=== PATIENT | male | born 1985 | race Caucasian/White ===

== ENCOUNTER 2021-08-10 12:39 | Outpatient (REF) | payer OTHER, SELFPAY ==
[2021-08-10 13:09] LABS: MANUAL DIFF FLAG NO
[2021-08-10 14:01] LABS: Basophils Percent Auto 0.5 % (0-2); Eosinophils Absolute Auto 0.1 X10*3/uL (0.0-0.4); Eosinophils Percent Auto 1.9 % (0-4); Hemoglobin 15.2 g/dl (14.0-18.0); Imm Gran Abs Auto 0.03 X10*3/uL (0.00-0.03); Imm Gran Pct Auto 0.4 % (0.0-0.4); Lymphocytes Absolute Auto 2.3 X10*3/uL (1.2-4.9); Lymphocytes Percent Auto 30.9 % (20-40); Mean Corpuscular Hemoglobin 29.7 pg (27.0-33.0); Mean Platelet Volume 10.5 fL (9.4-12.4); Monocytes Absolute Auto 0.5 X10*3/uL (0.1-1.2); Monocytes Percent Auto 6.8 % (2-11); Neutrophils Absolute Auto 4.4 x10*3/uL (2.0-8.3); Neutrophils Percent Auto 59.5 % (45-73); Platelet Count 348 X10*3/uL (160-400); Red Blood Count 5.11 X10*6/uL (4.60-5.80); Red Cell Distribution Width 11.6 % (11.0-16.0); White Blood Count 7.5 X10*3/uL (4.8-10.8)
[2021-08-10 14:57] LABS: Alanine Aminotransferase 21 U/L (0-40); Albumin Level 4.3 g/dL (3.5-5.0); Alkaline Phosphatase 51 U/L (39-117); Anion Gap 11 (12-20); Aspartate Amino Transferase 19 U/L (5-37); Bilirubin Total 0.5 mg/dL (0.0-1.0); Carbon Dioxide 28 mmol/L (22-29); Chloride 106 mmol/L (96-108); Cholesterol 205 mg/dL; Estimated Glomerular Filt Rate > 60; Glucose Fasting 111 mg/dL (60-99); HDL Cholesterol 40 mg/dL; LDL Cholesterol Calculated 136 mg/dl; Potassium 4.8 mmol/L (3.3-5.1); Sodium 140 mmol/L (135-145); Triglycerides 149 mg/dL
[2021-08-10 15:39] LABS: Estimated Average Glucose 123 mg/dL; Hemoglobin A1c % 5.9 %
[2021-08-10 15:48] LABS: Blood Urea Nitrogen 15 mg/dL (9-16); Calcium 10.2 mg/dL (8.4-10.2)
[2021-08-11 03:39] LABS: CT PCR NOT DETECTED (Not Detect.); NG PCR NOT DETECTED (Not Detect.)
[2021-08-11 09:51] LABS: HIV AB/AG Nonreactive (Nonreactive); HIV Num 1 0.04 S/CO (0.00-0.99)
[2021-08-12 08:35] LABS: Syphilis Screen Nonreactive (Nonreactive)
== END 2021-08-10 12:40 | disposition home or self-care (01) ==
LOC: HO.LAB 12:39
PROVIDERS: Visit Provider Nurse Practitioner Family
DX: Z11.4 Encounter for screening for human immunodeficiency virus [HIV] (principal); Z11.3 Encounter for screening for infections with a predominantly sexual mode of transmission; E78.00 Pure hypercholesterolemia, unspecified; E11.9 Type 2 diabetes mellitus without complications; I10 Essential (primary) hypertension
CPT/HCPCS: 80053; 80061; 83036; 85025; 86780; 87389; 87491; 87591

== ENCOUNTER 2021-12-01 12:06 | Outpatient (REF) | payer OTHER, SELFPAY ==
--- NOTE | ~2021-12-01 | XR_ITS ---
EXAMINATION: X-RAY RIGHT FOOT X-RAY LEFT FOOT CLINICAL INFORMATION: Pain. COMPARISON: None. TECHNIQUE: 3 views of each foot were obtained. FINDINGS: Right foot: No acute fracture or malalignment. No significant degenerative osteoarthritis. No erosions. Nonspecific diffuse soft tissue swelling. Left foot: No acute fracture or malalignment. Mild degenerative osteoarthritis of tarsometatarsal joints. No erosions. Nonspecific diffuse soft tissue swelling. XR/XR foot RT min 3V IMPRESSION: No acute fractures or malalignment. 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 Nonspecific bilateral soft tissue swelling.
--- NOTE | ~2021-12-01 | XR_ITS ---
EXAMINATION: X-RAY RIGHT FOOT X-RAY LEFT FOOT CLINICAL INFORMATION: Pain. COMPARISON: None. TECHNIQUE: 3 views of each foot were obtained. FINDINGS: Right foot: No acute fracture or malalignment. No significant degenerative osteoarthritis. No erosions. Nonspecific diffuse soft tissue swelling. Left foot: No acute fracture or malalignment. Mild degenerative osteoarthritis of tarsometatarsal joints. No erosions. Nonspecific diffuse soft tissue swelling. XR/XR foot LT min 3V IMPRESSION: No acute fractures or malalignment. 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 Nonspecific bilateral soft tissue swelling.
== END 2021-12-01 12:07 | disposition home or self-care (01) ==
LOC: HO.XRAY 12:06
PROVIDERS: PCP Nurse Practitioner Family; Visit Provider Nurse Practitioner Family
DX: M79.671 Pain in right foot (principal); M79.672 Pain in left foot
CPT/HCPCS: 73630

== ENCOUNTER 2022-10-03 12:04 | Outpatient (REF) | payer OTHER, SELFPAY ==
[2022-10-03 13:15] LABS: Hematocrit 49.2 % (42.0-52.0); Hemoglobin 16.2 g/dl (14.0-18.0); Mean Corpuscular HGB Conc 32.9 g/dl (31.0-36.0); Mean Corpuscular Hemoglobin 29.8 pg (27.0-33.0); Mean Corpuscular Volume 90.4 fL (80.0-98.0); Mean Platelet Volume 10.3 fL (9.4-12.4); Platelet Count 276 X10*3/uL (160-400); Red Blood Count 5.44 X10*6/uL (4.60-5.80); Red Cell Distribution Width 11.9 % (11.0-16.0); White Blood Count 6.2 X10*3/uL (4.8-10.8)
[2022-10-03 13:53] LABS: Alanine Aminotransferase 20 U/L (0-40); Albumin Level 4.3 g/dL (3.5-5.0); Alkaline Phosphatase 56 U/L (39-117); Anion Gap 14 (12-20); Aspartate Amino Transferase 19 U/L (5-37); Bilirubin Total 0.9 mg/dL (0.0-1.0); Blood Urea Nitrogen 18 mg/dL (9-16); Calcium 9.8 mg/dL (8.4-10.2); Carbon Dioxide 27 mmol/L (22-29); Chloride 104 mmol/L (96-108); Cholesterol 214 mg/dL; Estimated Glomerular Filt Rate 54; Glucose Fasting 103 mg/dL (60-99); HDL Cholesterol 47 mg/dL; LDL Cholesterol Calculated 144 mg/dl; Potassium 4.7 mmol/L (3.3-5.1); Sodium 140 mmol/L (135-145); Total Protein 7.4 g/dL (6.5-8.0); Triglycerides 117 mg/dL
[2022-10-03 14:00] LABS: TSH reflex Free T4 0.84 uIU/mL (0.32-4.0)
== END 2022-10-03 12:05 | disposition home or self-care (01) ==
LOC: HO.LAB 12:04
PROVIDERS: PCP Physician Assistant; Visit Provider Physician Assistant
DX: E66.09 Other obesity due to excess calories (principal); E78.9 Disorder of lipoprotein metabolism, unspecified; Z68.36 Body mass index [BMI] 36.0-36.9, adult
CPT/HCPCS: 36415; 80053; 80061; 84443; 85027

== ENCOUNTER 2023-08-01 13:15 | Outpatient (AMB) | payer OTHER, SELFPAY ==
--- NOTE | 2023-08-01 13:28 | A.OFFPC_ITS ---
Vital Signs 08/01/23 13:29 Height 5 ft 9 in Weight 247 lb 4 oz BMI 36.5 BP 128/96 H Blood Pressure Location Lt brachial Position Sitting Pulse 65 Pulse Source Pulse Oximeter Pulse Oximetry (%) 97 Oxygen Delivery Method Room Air Intake Visit Reasons: PE Intake Note: Patient is here today for a physical. Microbiology Manager Required: No Accompanied by: Self / Same As Patient Allergies No Known Drug Allergies Allergy (Unknown, Verified 08/01/23 13:38) Unknown Medication List - Last Reconciled 08/01/23 by Milton Bird PA-C No Known Home Meds Tobacco use date assessed: 08/01/23 Dental Screening Dental Screen Date: 08/01/23 Did you have a dental visit in the last 12 months?: No Did you have a dental problem in the last 6 months where you did not have access to dental care?: No Was dental information given to patient?: Yes HPI PE HPI Details Patient is a 38-year-old male here today for a follow-up visit. Vaccines:? Up-to-date with COVID vaccine, up-to-date with flu , up-to-date with tetanus vaccine . .? Obesity: Unfortunately gained weight since last office visit.. Has been more physically active and training for a 5K. ? Patient does understand his BMI is well over 30 has been working on being more physically active to reduce his weight. .. Elevated blood pressure reading:? Blood pressure reading today in office accepta ble. Has lost weight since last office visit .. Borderline high cholesterol: Most recent lipid panel showing borderline high total cholesterol. Laboratory Tests 08/10/21 08/10/21 10/03/22 13:07 13:07 12:10 Creatinine 1.31 1.46 H Fasting Glucose 111 H Cholesterol 205 LDL Cholesterol, C alc 136 10/03/22 12:10 Creatinine Fasting Glucose Cholesterol 214 LDL Cholesterol, C alc ON LICENSE OF [facility] Medical History (Updated 10/04/22 @ 13:12 by Milton Bird PA-C) Obese Surgical History H/O hand surgery Family History Mother No problems noted. Father No problems noted. 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 1. Little interest or pleasure in doing things: not at all 2. Feeling down, depressed, or hopeless: not at all 3. Trouble falling or staying asleep, or sleeping too much: not at all 4. Feeling tired or having little energy: not at all 5. Poor appetite or overeating: not at all 6. Feeling bad about yourself - or that you are a failure or have let yourself or your family down: not at all 7. Trouble concentrating on things, such as reading the newspaper or watching television: not at all 8. Moving or speaking so slowly that other people could have noticed. Or the opposite - being so fidgety or restless that you have been moving around a lot more than usual: not at all 9. Thoughts that you would be better off or of hurting yourself in some way : not at all Total score: 0 Depression Screening Interpretation: Negative Depression Screening Done: Yes 02005 - PHQ-9 Billing: Yes Source: Developed by Drs. Kev Winter, Lacey Weaver, Joni Meyers and colleagues, with an educational pastor from [employer]. Thrive Questionnaire Date Thrive assessed: 08/01/23 I am a: Patient What is your living situation today?: I have a steady place to live Within the past 12 months, did the food you bought not last and you didn't have the money to get more?: Never true Within the past 12 months, did you worry whether your food would run out before you got money to buy more?: Never true Do you have trouble paying for medicines?: No Do you have trouble getting transportation to medical appointments?: No Do you have trouble paying your heating and electricity bill?: No Do you have trouble taking care of your child, family member or friend?: No Do you have trouble with day-to-day activities such as bathing, preparing meals, shopping, managing finances, etc.?: No Are you currently unemployed and looking for a job?: No Are you interested in more education?: No Please select the resources that you would like help with: None Currently or been in a relationship where the following occur: no concerns reported THRIVE Score: 0 AUDIT C Alcohol Use Questionnaire (AUDIT-C) 1. How often do you have a drink containing alcohol?: 2-4 times a month 2. How many drinks containing alcohol do you have on a typical day when you are drinking?: 3 or 4 3. How often do you have six or more drinks on one occasion?: Never Total Score: 3 RAMIN-7 AMB Questionnaire RAMIN-7 Date RAMIN - 7 assessed: 08/01/23 Feeling nervous, anxious, or on edge: 0 = Not at all Not being able to stop or control worryin = Not at all Worrying too much about different things: 0 = Not at all Trouble relaxin = Not at all Being so restless that it is hard to sit still: 0 = Not at all Becoming easily annoyed or irritable: 0 = Not at all Feeling afraid as if something awful might happen: 0 = Not at all Total RAMIN-7 score (0-4 normal; 5-9 mild; 10-14 moderate; 15-21 severe): 0 Source: Developed by Drs. Kev Winter, Lacey Weaver, Joni Meyers and colleagues, with an educational pastor from [employer]. RAMIN-7 Assessment Billing RAMIN-7 Assessment Tool: RAMIN-7 Assessment 72225 Review of Systems Const Denies body aches, Denies chills, Denies excessive sweating, Denies fatigue, Denies fever(s) and Denies headache(s) Eyes Denies blurry vision ENT Denies dysphagia, Denies vertigo, Denies dizziness, Denies headache(s), Denies hearing loss and Denies tinnitus Card Denies chest pain, Denies chest pain with activity, Denies syncope, Denies irregular heart rhythm and Denies dyspnea Resp Denies chest congestion, Denies cough, Denies hemoptysis, Denies dyspnea and Denies wheezing GI Denies abdominal pain, Denies melena, Denies hematochezia, Denies coffee ground emesis, Denies dysphagia, Denies diarrhea, Denies nausea and Denies vomiting Denies difficulty urinating, Denies dysuria, Denies urinary frequency, Denies urinary hesitancy and Denies urinary urgency Musc Denies arthralgias, Denies limited range of motion, Denies muscle cramps and Denies muscle weakness Skin/Breast Denies rash and Denies skin ulcer Neuro Denies Abnormal speech present, Denies confusion, Denies vertigo, Denies dizziness, Denies syncope, Denies headache(s), Denies memory loss and Denies seizure-like activity Psych Denies anxiety, Denies confusion, Denies depression, Denies memory loss, Denies panic attacks and Denies paranoia Endo Denies excessive sweating, Denies fatigue, Denies flushing, Denies polydipsia and Denies polyuria Aller/Immun Denies wheezing Physical exam (Primary Care) Vital Signs: Last Vital Signs Pulse 65 08/01/23 13:29 BP 128/96 H 08/01/23 13:29 Pulse Ox 97 08/01/23 13:29 Oxygen Delivery Method Room Air 08/01/23 13:29 BMI result Body Mass Index 36.5 BMI Assessment/Plan discussion: High Tobacco/Smoking Status: Tobacco use Status Tobacco use date assessed 08/01/23 08/01/23 13:34 Patient Tobacco Use Status Never used Tobacco 08/01/23 13:34 e-Cigarette/Vaping Use Currently Using 08/01/23 13:34 PHQ-9: PHQ-9 Score PHQ-9: Total score 0 08/01/23 13:34 Depression Screening Interpretation: Negative Thrive Assessment: Date of Thrive Assessment Date Thrive assessed 08/01/23 08/01/23 13:34 Currently or been in a relationship where the following occur: no concerns reported Const Other: OBESE General: cooperative, comfortable, no acute distress, alert and awake; No confusion Orientation/consciousness: oriented to person, oriented to place, patient oriented x3 and No confusion HENMT Head: Yes normocephalic Ears: external ears normal and TM's normal bilaterally Face and sinus: No sinus tenderness Mouth: Normal oral and palatal mucosa present and tongue normal Teeth and gingiva: dentition normal and gingiva normal Throat: Yes posterior oropharynx normal, Yes tonsils normal and Yes uvula midline Eyes Conjunctivae: conjunctivae normal Sclerae: sclerae normal Pupils: Equal, round and reactive pupils present EOM: EOMs intact bilaterally Direct Ophthalmoscopy: No no photophobia Neck Neck: Yes no lymphadenopathy, No tender and Yes no JVD Thyroid: Thyroid normal Carotids: no bruits Chest Chest palpation & inspection: no tenderness Resp Effort & Inspection: normal respiratory effort, no audible wheezes, not labored and no stridor Auscultation: no crackles, no rales, no rhonchi and no wheezes Cardio Jugular venous distension: no JVD Rate: regular rate, not bradycardic and not tachycardic Rhythm: regular rhythm Bruits: no carotid bruits Peripheral pulses: Peripheral pulses 2+ throughout GI Inspection: Yes normal to inspection, No abdominal wall ecchymosis and No visible herniation Palpation (GI): Soft to palpation, nontender, no guarding, not rigid and No hepatosplenomegaly present Auscultation: normoactive bowel sounds General: Yes no CVA tenderness Back/Spine/Pelvis Back: no CVA tenderness and No back tenderness Cervical Spine: cervical ROM normal Thoracic/Lumbar Spine: thoracic and lumbar spine normal to inspection, straight leg raise negative bilaterally, No thoraco-lumbar ROM limited and No lumbar spinal tenderness Skin Lesions: no lesions Rashes: no rashes Wounds: no wounds Neuro General: oriented to person, oriented to place, patient oriented x3, CN's II-XI intact bilaterally and No confusion Cranial nerves: Yes Equal, round and reactive pupils present and Yes Normal accommodation reflex present Cognition (Neuro): normal cognition Speech: No Abnormal speech present Gait exam (Neuro): Normal gait present Motor exam (neuro): 5/5 motor strength present throughout Extrem Right upper extremity: full ROM; no cyanosis Left upper extremity: full ROM; no cyanosis Right lower extremity: no edema Left lower extremity: no edema Psych Appearance: grossly normal Mental Status: mental status grossly normal Affect: normal affect Attitude: cooperative Thought process: Normal thought process present Office Procedures Flu Questionnaire Does the patient have a severe egg allergy?: No Does the patient have severe life threatening allergies?: No Does the patient have a fever or illness today?: No Has the patient ever had Guillain-[place] Syndrome?: No Has the patient ever had any past reaction to a flu shot?: No Immunizations flu vacc [id number] 6mos up(PF) 60 mcg(15 mcgx4)/0.5 mL IM syringe Performing Provider: Milton Bird PA-C [facility] Administered by: STEPHY Thorpe on 08/01/23 13:38 Dose Route Admin Location Dispensed Lot Number Expiration Date [employer] Mushroom 0.5 mL IM Left Deltoid 0.5 mL [id number] 12/30/23 06514-365-12 [employer] VIS Given Date VIS Provided VIS Publication Date 08/01/23 Single Vaccine 21 Eligibility Eligibility Date Funding Source Not VFC Eligible 08/01/23 Private Assessment and Plan Assessment & Plan (1) Annual physical exam: Code(s): Z00.00 - Encounter for general adult medical examination without abnormal findings (2) Borderline high cholesterol: Code(s): E78.9 - Disorder of lipoprotein metabolism, unspecified Plan: Most recent lipid panel showing borderline high total cholesterol. Patient has been working on lifestyle modifications and has lost his weight. Will recheck lipid panel to assure normal. Will continue on lifestyle modifications to reduce his cholesterol. (3) Obese: Code(s): E66.9 - Obesity, unspecified Qualifiers: Obesity type: due to excess calories Obesity classification: adult class 2 (BMI 35 - 39.9) Serious obesity comorbidity presence: without serious comorbidity Body mass index: BMI 36.0-36.9 Qualified Code(s): E66.09 - Other obesity due to excess calories; Z68.36 - Body mass index [BMI] 36.0-36.9, adult Plan: Patient does understand his BMI is over 30 and has been working diligently on being more physically active and adapting to better eating habits to reduce his weight. Has lost weight since last office visit. (4) Impaired glucose metabolism: Code(s): R73.09 - Other abnormal glucose Plan: Patient's most recent fasting blood sugar and A1c and prediabetic range. He again has been working on lifestyle modifications to reduce his weight and blood sugars. (5) Elevated blood pressure reading: Code(s): R03.0 - Elevated blood-pressure reading, without diagnosis of hypertension Plan: Noted slightly elevated blood pressure reading today in office. Will continue to monitor work on lifestyle modifications to reduce his weight. (6) Plaque psoriasis: Code(s): L40.0 - Psoriasis vulgaris Plan: Patient does seem to plaque psoriasis over his bilateral anterior shins. Will supply patient with hydrocortisone cream to use during flares. Otherwise a dvised on keeping area moisturized after showers and following a low inflammatory diet. Orders: Orders Influenza [id number] Immunization Today Z23 - Encounter for immunization Comprehensive [place]. Panel Fast Today R73.09 - Other abnormal glucose Lipid Panel Today E78.9 - Disorder of lipoprotein metabolism, unspecified Hemoglobin A1c Today R73.09 - Other abnormal glucose Medications: New hydrocortisone valerate 0.2% 1 appl topical BID 30 days 45 grams 0RF L40.0 - Psoriasis vulgaris Coding Level of Care Code Est Pt Prev Care 18-39y(57719) Diagnoses Annual physical exam Z00.00 Borderline high cholesterol E78.9 Class 2 obesity due to excess calories without serious comorbidity with body mass index (BMI) of 36.0 to 36.9 in adult E66.09; Z68.36 Obesity type: due to excess calories Obesity classification: adult class 2 (BMI 35 - 39.9) Serious obesity comorbidity presence: without serious comorbidity Body mass index: BMI 36.0-36.9 Impaired glucose metabolism R73.09 Elevated blood pressure reading R03.0 Plaque psoriasis L40.0 Additional Codes RAMIN-7 Assessment Billing - RAMIN-7 Assessment Tool: RAMIN-7 Assessment [id number] ([id number])
[2023-08-01 13:29] VITALS: BP 128/96; PULSE 65; O2SAT 97; BMI 36.5
== END 2023-08-01 14:00 | disposition home or self-care (01) ==
PROVIDERS: PCP Physician Assistant; Visit Provider Physician Assistant
DX: Z23 Encounter for immunization (principal); Z00.00 Encounter for general adult medical examination without abnormal findings; E78.9 Disorder of lipoprotein metabolism, unspecified; E66.09 Other obesity due to excess calories; Z68.36 Body mass index [BMI] 36.0-36.9, adult; R73.09 Other abnormal glucose; R03.0 Elevated blood-pressure reading, without diagnosis of hypertension; L40.0 Psoriasis vulgaris
CPT/HCPCS: 90471; 90686; 99395

== ENCOUNTER 2023-08-15 08:45 | Outpatient (REF) | payer OTHER, SELFPAY ==
[2023-08-15 10:02] LABS: Estimated Average Glucose 108 mg/dL; Hemoglobin A1c % 5.4 % (<6.0)
[2023-08-15 10:30] LABS: Alanine Aminotransferase 41 U/L (0-40); Albumin Level 4.2 g/dL (3.5-5.0); Alkaline Phosphatase 51 U/L (39-117); Anion Gap 10 (12-20); Aspartate Amino Transferase 30 U/L (5-37); Bilirubin Total 0.8 mg/dL (0.0-1.0); Blood Urea Nitrogen 20 mg/dL (9-16); Calcium 9.4 mg/dL (8.4-10.2); Carbon Dioxide 26 mmol/L (22-29); Chloride 108 mmol/L (96-108); Cholesterol 223 mg/dL (<200); Estimated Glomerular Filt Rate 53; Glucose Fasting 110 mg/dL (60-99); Glucose Random 109 mg/dL (60-115); HDL Cholesterol 43 mg/dL (>40); LDL Cholesterol Calculated 143 mg/dL (<100); Potassium 4.1 mmol/L (3.3-5.1); Sodium 140 mmol/L (135-145); Total Protein 7.8 g/dL (6.5-8.0); Triglycerides 188 mg/dL (<150)
== END 2023-08-15 08:46 | disposition home or self-care (01) ==
LOC: HO.LAB 08:45
PROVIDERS: PCP Physician Assistant; Visit Provider Physician Assistant
DX: R73.09 Other abnormal glucose (principal); N28.9 Disorder of kidney and ureter, unspecified; E78.9 Disorder of lipoprotein metabolism, unspecified
CPT/HCPCS: 36415; 80048; 80053; 80061; 83036

== ENCOUNTER 2024-04-14 08:22 | Outpatient (AMB) | payer OTHER, SELFPAY ==
--- NOTE | 2024-04-14 08:35 | MHC.PC.OV ---
Vital Signs 04/14/24 08:37 Height 5 ft 9 in Weight 246 lb 8 oz BMI 36.4 BP 130/72 Blood Pressure Location Lt brachial Position Sitting Pulse 57 Pulse Source Pulse Oximeter Pulse Oximetry (%) 99 Oxygen Delivery Method Room Air Intake Visit Reasons: 6m f/u Intake Note: Patient is here to follow up on IGF, Obesity, Elevated blood pressure, Borderline high Cholesterol. Occupational Medicine Physician Required: No Production Underwriter: Not Required per policy Accompanied by: Self / Same As Patient Allergies No Known Drug Allergies Allergy (Unknown, Verified 04/14/24 08:45) Unknown Medication List - Last Reconciled 04/14/24 by Milton Bird PA-C hydrocortisone valerate 0.2% 1 appl topical BID 30 days Tobacco use date assessed: 04/14/24 Dental Screening Dental Screen Date: 08/01/23 HPI 6m f/u HPI Details Patient is a 39-year-old male here today for a follow-up visit. Patient has a past medical history significant for borderline high cholesterol, obesity. . .? Obesity: Patient does understand his is over 30 will try to work on being more physically active and adapting better eating habits to reduce his weight.. .. Elevated blood pressure reading:? Blood pressure noted to be improved today in office. .. Borderline high cholesterol: Most recent lipid panel showing borderline high total cholesterol. He will work on lifestyle and dietary modifications Laboratory Tests 10/03/22 08/15/23 12:10 09:12 Creatinine 1.49 H Fasting Glucose 110 H Cholesterol 214 223 H [facility] Surgical History H/O hand surgery Family History Mother No problems noted. Father No problems noted. 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 Kev Winter, Lacey Weaver, Joni Meyers and colleagues, with an educational pastor from [employer]. Review of Systems Const Denies headache(s) Eyes Denies loss of vision ENT Denies vertigo, Denies dizziness, Denies headache(s) and Denies sore throat Card Denies chest pain, Denies leg edema and Denies lightheadedness Resp Denies cough, Denies hemoptysis and Denies wheezing GI Denies abdominal pain, Denies melena, Denies constipation, Denies diarrhea and Denies vomiting Denies dysuria, Denies urinary frequency and Denies urinary urgency Musc Denies arthralgias, Denies joint swelling, Denies numbness and Denies tingling Neuro Denies Abnormal speech present, Denies behavioral changes, Denies vertigo, Denies dizziness, Denies headache(s), Denies loss of vision, Denies memory loss, Denies numbness and Denies tingling Psych Denies anxiety, Denies behavioral changes, Denies depression, Denies memory loss and Denies panic attacks Mariusz/Lymph Denies easy bleeding and Denies easy bruising Aller/Immun Denies wheezing Physical exam (Primary Care) Vital Signs: Last Vital Signs Pulse 57 04/14/24 08:37 BP 130/72 04/14/24 08:37 Pulse Ox 99 04/14/24 08:37 Oxygen Delivery Method Room Air 04/14/24 08:37 BMI result Body Mass Index 36.4 Tobacco/Smoking Status: Tobacco use Status Tobacco use date assessed 04/14/24 04/14/24 08:41 Patient Tobacco Use Status Never used Tobacco 04/14/24 08:41 e-Cigarette/Vaping Use Currently Using 04/14/24 08:41 Thrive Assessment: Date of Thrive Assessment Date Thrive assessed 08/01/23 04/14/24 08:41 Const General: healthy appearing, no acute distress, alert and awake Nutritional Appearance: well nourished Orientation/consciousness: oriented to person, oriented to place and oriented to time HENMT Ears: TM's normal bilaterally General nose exam: Normal nasal mucous membranes and turbinates present Eyes Conjunctivae: conjunctivae normal Sclerae: sclerae normal Pupils: Equal, round and reactive pupils present Neck Neck: Yes no lymphadenopathy and Yes no JVD Thyroid: Thyroid normal Carotids: no bruits Resp Effort & Inspection: normal respiratory effort and not tachypneic Auscultation: no crackles, no rales, no rhonchi and no wheezes Cardio Rate: regular rate Rhythm: regular rhythm Heart sounds: no murmurs and normal S1 and S2 GI Palpation (GI): Soft to palpation, nontender, no hepatomegaly and no splenomegaly Auscultation: normal bowel sounds Skin General skin exam: no rashes or lesions noted and dry skin Neuro General: oriented to person, oriented to place and oriented to time Cranial nerves: Yes Equal, round and reactive pupils present Speech: No Abnormal speech present Gait exam (Neuro): Normal gait present Motor exam (neuro): no tremor noted Extrem Right upper extremity: full ROM Left upper extremity: full ROM Right lower extremity: full ROM; no edema Left lower extremity: full ROM; no edema Psych Mental Status: mental status grossly normal Speech and movement: Normal speech and movement present Affect: normal affect Attitude: cooperative Thought process: Normal thought process present Office Procedures Flu Questionnaire Does the patient have a severe egg allergy?: No Does the patient have severe life threatening allergies?: No Does the patient have a fever or illness today?: No Has the patient ever had Guillain-[place] Syndrome?: No Has the patient ever had any past reaction to a flu shot?: No Immunizations Fluarix Triv [id number] (PF) 45 mcg (15 mcg x 3)/0.5 mL IM syringe Performing Provider: Milton Bird PA-C [facility] Administered by: LINDA Gonzales on 04/14/24 09:00 Dose Route Admin Location Dispensed Lot Number Expiration Date [employer] 0.5 mL IM Right Deltoid 0.5 mL [id number] 12/29/24 38209-549-39 [employer] VIS Given Date VIS Provided VIS Publication Date 04/14/24 Single Vaccine 21 Eligibility Eligibility Date Funding Source Not [facility] Eligible 04/14/24 Private Coding Level of Care Code Est Pt Level 4 (29239) Diagnoses Impaired glucose metabolism R73.09 Borderline high cholesterol E78.9 Class 2 obesity E66.812 Assessment & Plan Assessment & Plan (1) Impaired glucose metabolism: Code(s): R73.09 - Other abnormal glucose Category: Medical Plan: Patient's most recent fasting blood sugar slightly elevated, A1c has been stable. He will work on lifestyle and dietary modifications to reduce his fasting blood sugar (2) Borderline high cholesterol: Code(s): E78.9 - Disorder of lipoprotein metabolism, unspecified Category: Medical Plan: Most recent lipid panel showing borderline high total cholesterol. Again will work on lifestyle and dietary modifications to reduce his cholesterol. Goal total cholesterol to be below 200 (3) Class 2 obesity: Code(s): E66.812 - Obesity, class 2 Category: Medical Plan: Patient again does understand his BMI is over 35 and work on being more physically active and adapting to better eating habits to reduce his weight. Orders: Orders Lipid Panel Today E78.9 - Disorder of lipoprotein metabolism, unspecified Comprehensive [place]. Panel Fast Today E78.9 - Disorder of lipoprotein metabolism, unspecified Complete Blood Count no Diff Today E78.9 - Disorder of lipoprotein metabolism, unspecified Hemoglobin A1c Today R73.09 - Other abnormal glucose
[2024-04-14 08:37] VITALS: BP 130/72; PULSE 57; O2SAT 99; BMI 36.4
== END 2024-04-14 09:01 | disposition home or self-care (01) ==
PROVIDERS: PCP Physician Assistant; Visit Provider Physician Assistant
DX: R73.09 Other abnormal glucose (principal); E78.9 Disorder of lipoprotein metabolism, unspecified; E66.812 Obesity, class 2; Z23 Encounter for immunization

== ENCOUNTER → 2024-04-14 08:22 | Outpatient (BNVA) | payer OTHER, SELFPAY | PROVIDERS: PCP Physician Assistant; Visit Provider Physician Assistant | DX: R73.09 Other abnormal glucose (principal); E78.9 Disorder of lipoprotein metabolism, unspecified; E66.812 Obesity, class 2; Z68.36 Body mass index [BMI] 36.0-36.9, adult; Z23 Encounter for immunization | CPT/HCPCS: 90471; 90656 ==

== ENCOUNTER 2024-10-15 07:08 | Outpatient (AMB) | payer OTHER, SELFPAY ==
[2024-10-15 07:30] VITALS: BP 118/78; PULSE 58; O2SAT 99; BMI 35.7
--- NOTE | 2024-10-15 07:30 | A.OFFPC_ITS ---
Vital Signs 3 10/15/24 07:30 Height 5 ft 9 in Weight 242 lb BMI 35.7 BP 118/78 Blood Pressure Location Lt brachial Position Sitting Pulse 58 Pulse Source Pulse Oximeter Pulse Oximetry (%) 99 Oxygen Delivery Method Room Air Intake Visit Reasons: ANNUAL Allergies No Known Drug Allergies Allergy (Unknown, Verified 10/15/24 07:59) Unknown Medication List - Last Reconciled 10/15/24 by Milton Bird PA-C hydrocortisone valerate 0.2% 1 appl topical BID 30 days Tobacco use date assessed: 10/15/24 Dental Screening Dental Screen Date: 10/15/24 Did you have a dental visit in the last 12 months?: No Did you have a dental problem in the last 6 months where you did not have access to dental care?: No Was dental information given to patient?: Patient has dentist HPI ANNUAL 2 HPI0 Details Patient is a 39-year-old male here today for a routine annual physical. Patient has a past medical history significant for borderline high cholesterol, obesity. Psoriasis--> has been suffering with bilateral bonilla skin manifestation that is dry and itchy. Has been using hydrocortisone cream though has not been effective. He is interested in seeing a production officer for evaluation. PLAN: Will change his topical formulation to triamcinolone ointment to lock in moisture. . Class 2 Obesity: Has been implementing better eating habits and being more physically active. Has lost weight since last office visit .. Elevated blood pressure reading:? Blood pressure noted to be improved today in office. .. Borderline high cholesterol: Most recent lipid panel showing borderline high total cholesterol. He will work on lifestyle and dietary modifications. Vaccines:? Up-to-date with COVID vaccine, , up-to-date with tetanus vaccine [facility] Surgical History H/O hand surgery Family History (Updated 10/15/24 @ 08:04 by Milton Bird PA-C) Mother No problems noted. Father Glaucoma Other Prostate cancer Social History (Updated 10/15/24 @ 08:06 by Milton Bird PA-C) Housing: Apartment Alcohol intake: current Alcohol intake frequency: holidays/special occasions only Alcohol type: beer Patient Tobacco Use Status: Never used Tobacco Tobacco use type: Cigarette e-Cigarette/Vaping Use: Former Use Second Hand Smoke Exposure: Yes service: No Current occupational status: employed Current occupation: [employer] Current occupational exposures/hazards: No Cognitive needs: No Hearing needs: No Vision needs: No Questionnaire PHQ-9 Over the last 2 weeks, how often have you been bothered by any of the following problems? 1. Little interest or pleasure in doing things: not at all 2. Feeling down, depressed, or hopeless: not at all 3. Trouble falling or staying asleep, or sleeping too much: not at all 4. Feeling tired or having little energy: not at all 5. Poor appetite or overeating: not at all 6. Feeling bad about yourself - or that you are a failure or have let yourself or your family down: not at all 7. Trouble concentrating on things, such as reading the newspaper or watching television: not at all 8. Moving or speaking so slowly that other people could have noticed. Or the opposite - being so fidgety or restless that you have been moving around a lot more than usual: not at all 9. Thoughts that you would be better off or of hurting yourself in some way: not at all Total score: 0 Depression Screening Interpretation: Negative Depression Screening Done: Yes 41845 - PHQ-9 Billing: Yes Source: Developed by Drs. Kev Winter, Lacey Weaver, Joni Meyers and colleagues, with an educational pastor from [employer] Thrive Questionnaire Date Thrive assessed: 10/15/24 I am a: Patient What is your living situation today?: I have a steady place to live Within the past 12 months, did the food you bought not last and you didn't have the money to get more?: Never true Within the past 12 months, did you worry whether your food would run out before you got money to buy more?: Never true Do you have trouble paying for medicines?: No Do you have trouble getting transportation to medical appointments?: No Do you have trouble paying your heating and electricity bill?: No Do you have trouble taking care of your child, family member or friend?: No Do you have trouble with day-to-day activities such as bathing, preparing meals, shopping, managing finances, etc.?: No Are you currently unemployed and looking for a job?: No Are you interested in more education?: No Currently or been in a relationship where the following occur: No concerns reported THRIVE Score: 0 AUDIT C Alcohol Use Questionnaire (AUDIT-C) 1. How often do you have a drink containing alcohol?: 2-4 times a month 2. How many drinks containing alcohol do you have on a typical day when you are drinking?: 3 or 4 3. How often do you have six or more drinks on one occasion?: Never Total Score: 3 RAMIN-7 AMB Questionnaire RAMIN-7 Date RAMIN - 7 assessed: 10/15/24 Feeling nervous, anxious, or on edge: 0 = Not at all Not being able to stop or control worryin = Not at all Worrying too much about different things: 0 = Not at all Trouble relaxin = Not at all Being so restless that it is hard to sit still: 0 = Not at all Becoming easily annoyed or irritable: 0 = Not at all Feeling afraid as if something awful might happen: 0 = Not at all Total RAMIN-7 score (0-4 normal; 5-9 mild; 10-14 moderate; 15-21 severe): 0 Source: Developed by Drs. Kev Winter, Lacey Weaver, Joni Meyers and colleagues, with an educational pastor from [employer] RAMIN-7 Assessment Billing RAMIN-7 Assessment Tool: RAMIN-7 Assessment 78462 Review of Systems Const Denies body aches, Denies chills, Denies excessive sweating, Denies fatigue, Denies fever(s) and Denies headache(s) Eyes Denies blurry vision ENT Denies dysphagia, Denies vertigo, Denies dizziness, Denies headache(s), Denies hearing loss and Denies tinnitus Card Denies chest pain, Denies chest pain with activity, Denies syncope, Denies irregular heart rhythm and Denies dyspnea Resp Denies chest congestion, Denies cough, Denies hemoptysis, Denies dyspnea and Denies wheezing GI Denies abdominal pain, Denies melena, Denies hematochezia, Denies coffee ground emesis, Denies dysphagia, Denies diarrhea, Denies nausea and Denies vomiting Denies difficulty urinating, Denies dysuria, Denies urinary frequency, Denies urinary hesitancy and Denies urinary urgency Musc Denies arthralgias, Denies limited range of motion, Denies muscle cramps and Denies muscle weakness Skin/Breast Denies rash and Denies skin ulcer Neuro Denies Abnormal speech present, Denies confusion, Denies vertigo, Denies dizziness, Denies syncope, Denies headache(s), Denies memory loss and Denies seizure-like activity Psych Denies anxiety, Denies confusion, Denies depression, Denies memory loss, Denies panic attacks and Denies paranoia Endo Denies excessive sweating, Denies fatigue, Denies flushing, Denies polydipsia and Denies polyuria Aller/Immun Denies wheezing Physical exam (Primary Care) Vital Signs: Last Vital Signs Pulse 58 10/15/24 07:30 BP 118/78 10/15/24 07:30 Pulse Ox 99 10/15/24 07:30 Oxygen Delivery Method Room Air 10/15/24 07:30 BMI result Body Mass Index 35.7 BMI Assessment/Plan discussion: High BMI High, discussed plan: lifestyle, weight reduction, dietary and physical activity Tobacco/Smoking Status: Tobacco use Status Tobacco use date assessed 10/15/24 10/15/24 07:31 Patient Tobacco Use Status Never used Tobacco 10/15/24 07:31 Tobacco use type Cigarette 10/15/24 07:31 e-Cigarette/Vaping Use Former Use 10/15/24 07:55 PHQ-9: PHQ-9 Score PHQ-9: Total score 0 10/15/24 07:55 Depression Screening Interpretation: Negative Thrive Assessment: Date of Thrive Assessment Date Thrive assessed 10/15/24 10/15/24 07:31 Currently or been in a relationship where the following occur: No concerns reported Const General: cooperative, comfortable, no acute distress, alert and awake; No confusion Orientation/consciousness: oriented to person, oriented to place, patient oriented x3 and No confusion HENMT Head: Yes normocephalic Ears: external ears normal and TM's normal bilaterally Face and sinus: No sinus tenderness Mouth: Normal oral and palatal mucosa present and tongue normal Teeth and gingiva: dentition normal and gingiva normal Throat: Yes posterior oropharynx normal, Yes tonsils normal and Yes uvula midline Eyes Conjunctivae: conjunctivae normal Sclerae: sclerae normal Pupils: Equal, round and reactive pupils present EOM: EOMs intact bilaterally Direct Ophthalmoscopy: No no photophobia Neck Neck: Yes no lymphadenopathy, No tender and Yes no JVD Thyroid: Thyroid normal Carotids: no bruits Chest Chest palpation & inspection: no tenderness Resp Effort & Inspection: normal respiratory effort, no audible wheezes, not labored and no stridor Auscultation: no crackles, no rales, no rhonchi and no wheezes Cardio Jugular venous distension: no JVD Rate: regular rate, not bradycardic and not tachycardic Rhythm: regular rhythm Bruits: no carotid bruits Peripheral pulses: Peripheral pulses 2+ throughout GI Inspection: Yes normal to inspection, No abdominal wall ecchymosis and No visible herniation Palpation (GI): Soft to palpation, nontender, no guarding, not rigid and No hepatosplenomegaly present Auscultation: normoactive bowel sounds General: Yes no CVA tenderness Back/Spine/Pelvis Back: no CVA tenderness and No back tenderness Cervical Spine: cervical ROM normal Thoracic/Lumbar Spine: thoracic and lumbar spine normal to inspection, straight leg raise negative bilaterally, No thoraco-lumbar ROM limited and No lumbar spinal tenderness Skin Lesions: no lesions Rashes: no rashes Wounds: no wounds Neuro General: oriented to person, oriented to place, patient oriented x3, CN's II-XI intact bilaterally and No confusion Cranial nerves: Yes Equal, round and reactive pupils present and Yes Normal accommodation reflex present Cognition (Neuro): normal cognition Speech: No Abnormal speech present Gait exam (Neuro): Normal gait present Motor exam (neuro): 5/5 motor strength present throughout Extrem Other: Right upper extremity: full ROM; no cyanosis Left upper extremity: full ROM; no cyanosis Right lower extremity: no edema Left lower extremity: no edema Psych Appearance: grossly normal Mental Status: mental status grossly normal Affect: normal affect Attitude: cooperative Thought process: Normal thought process present Coding Level of Care Code Est Pt Prev Care 18-39y([id number]) Diagnoses Annual physical exam Z00.00 Impaired glucose metabolism R73.09 Borderline high cholesterol E78.9 Class 2 obesity E66.812 Psoriasis L40.9 Additional Codes RAMIN-7 Assessment Billing - RAMIN-7 Assessment Tool: RAMIN-7 Assessment 23593 ([id number]) PHQ-9 - 91728 - PHQ-9 Billing: Yes ([id number]) Assessment & Plan Assessment & Plan (1) Annual physical exam: Code(s): Z00.00 - Encounter for general adult medical examination without abnormal findings Category: Medical Plan: As per HPI (2) Impaired glucose metabolism: Code(s): R73.09 - Other abnormal glucose Category: Medical Plan: Patient's most recent fasting blood sugar slightly elevated, A1c has been stable. He will work on lifestyle and dietary modifications to reduce his fasting blood sugar (3) Borderline high cholesterol: Code(s): E78.9 - Disorder of lipoprotein metabolism, unspecified Category: Medical Plan: Most recent lipid panel showing borderline high total cholesterol. Again will work on lifestyle and dietary modifications to reduce his cholesterol. Goal total cholesterol to be below 200 (4) Class 2 obesity: Code(s): E66.812 - Obesity, class 2 Category: Medical Plan: Patient again does understand his BMI is over 35 and work on being more physically active and adapting to better eating habits to reduce his weight. (5) Psoriasis: Code(s): L40.9 - Psoriasis, unspecified Category: Medical Plan: Please see picture section and physical exam. Patient has been using hydrocortisone cream though has not noted much difference. He would like to see a production officer. Will switch his topical treatment to triamcinolone ointment to lock in moisture. Orders: Referrals 2 Dermatology Referral L40.9 - Psoriasis, unspecified Medications: New 2 triamcinolone acetonide 0.1% 1 appl topical DAILY 30 days 80 grams 2RF L40.9 - Psoriasis, unspecified Discontinued 2 hydrocortisone valerate 0.2% Discontinued Reason: Doctor's Order 1 appl topical BID 30 days 45 grams 0RF L40.0 - Psoriasis vulgaris
== END 2024-10-15 08:18 | disposition home or self-care (01) ==
LOC: HO.HMCH 07:08
PROVIDERS: PCP Physician Assistant; Visit Provider Physician Assistant
DX: Z00.00 Encounter for general adult medical examination without abnormal findings (principal); R73.09 Other abnormal glucose; E66.812 Obesity, class 2; Z68.35 Body mass index [BMI] 35.0-35.9, adult; E78.9 Disorder of lipoprotein metabolism, unspecified; L40.9 Psoriasis, unspecified

== ENCOUNTER → 2024-10-15 07:08 | Outpatient (BNVA) | payer OTHER, SELFPAY | PROVIDERS: PCP Physician Assistant; Visit Provider Physician Assistant | DX: Z00.00 Encounter for general adult medical examination without abnormal findings (principal); R73.09 Other abnormal glucose; E78.9 Disorder of lipoprotein metabolism, unspecified; E66.812 Obesity, class 2; Z68.35 Body mass index [BMI] 35.0-35.9, adult; L40.9 Psoriasis, unspecified | CPT/HCPCS: 96127 ==